=== PATIENT | male | born 1990 | race Caucasian/White ===

== ENCOUNTER 2017-03-04 03:00 | Emergency (ER) | payer MEDICAID, OTHER ==
[~2017-03-04] VITALS: Ht 180.3 cm; Wt 73.0 kg
[~2017-03-04 03:00] MED LIST: DICY10CA60 PO; IBUP-1542 PO; ONDA4TAB35 PO; OSLT75C PO
[2017-03-04 03:14] VITALS: Ht 180.3 cm; Wt 73.0 kg
[2017-03-04] MEDS ORDERED: SOD CHLORIDE 0.9% 1,000 ML IV STA (03:18)
[2017-03-04] MEDS ORDERED: morphine 2 MG INJ IV STA (03:18)
[2017-03-04] MEDS ORDERED: ONDANSETRON 4 MG INJ IV STA (03:18)
--- NOTE | 2017-03-04 04:00 | RADRPT ---
PROCEDURE: CT ABDOMEN/PELVIS WITHOUT CONTRAST CLINICAL INDICATION: 26-year-old male with abdominal pain. TECHNIQUE: The study was performed utilizing a GE Cube[employer].fmpeed VCT 64-slice CT scanner. Direct axia l sections were obtained through the abdomen and pelvis without the use of intravenous contrast mate rial. Sagittal and coronal reformations were obtained. One or more of the following dose reduction t echniques were utilized: automated exposure control, adjustment of the mA and/or kV according to pat ient's size or use of iterative reconstruction technique. The images were reviewed on a PACS workst at[employer]et. CTD/vol = 8.1 mGy; Total Exam DLP = 455.5 mGy-cm. COMPARISON: CT abdomen/pelvis December 17, 2014. FINDINGS: The lung bases are unremarkable. There is no evidence for significant pleural effusion. The liver has a normal size and contour without focal areas of abnormal density. No intrahepatic nor extrahepa tic biliary ductal dilatation is seen. The gallbladder demonstrates no wall thickening nor perichole cystic fluid. No biliary stones are evident. The pancreas is without areas of abnormal attenuation. The spleen is identified and has a normal size without abnormal density. The adrenal glands are unr emarkable. The kidneys are without abnormal density. There is mild prominence of the right renal col lecting system without heidy obstructive uropathy. There is no evidence for nephroureterolithiasis. The urinary bladder contains urine. There is mild retained stool within the colon without obstructi on. Surgical clips are seen within the right lower quadrant from prior appendectomy. There is no s ignificant free fluid. The aortoiliac vessels are without aneurysmal dilatation. The osseous structures are intact. IMPRESSION: 1. Mild prominence of the right renal collecting system without evidence for obstructive uropathy. 2. Retained stool without evidence for bowel obstruction. 3. Prior appendectomy. .Lino Whiting MD, Date Time Electronically viewed and signed by .Lino Whiting MD, MD on 03/04/2017 03:59 .Juanis
[2017-03-04 04:28] LABS: ADD SCAN DIFF NO
[2017-03-04 04:51] LABS: BASOPHIL # 0.1 10^3/ul (0.0-0.1); EOSINOPHILS # 0.3 10^3/ul (0.0-0.5); HEMATOCRIT 48.3 % (42.0-52.0); LYMPHOCYTES # 1.5 10^3/ul (0.8-2.9); LYMPHOCYTES % 24.3 % (15.0-51.0); MEAN CORPUSCULAR HEMOGLOBIN 33.6 pg (29.0-33.0); MEAN CORPUSCULAR HGB CONC 35.2 g/dl (32.0-37.0); MEAN CORPUSCULAR VOLUME 95.5 fl (82.0-101.0); MEAN PLATELET VOLUME 10.1 fl (7.4-10.4); MONOCYTE # 0.4 10^3/ul (0.3-0.9); MONOCYTES % 7.1 % (0.0-11.0); NEUTROPHIL # 3.8 10^3/ul (1.6-7.5); NEUTROPHILS % 62.1 % (39.0-77.0); PLATELET COUNT 279 10^3/UL (140-415); RED BLOOD COUNT 5.06 10^6/ul (4.70-6.10); RED CELL DISTRIBUTION WIDTH 11.9 % (11.5-14.5); WHITE BLOOD COUNT 6.1 10^3/ul (4.8-10.8)
[2017-03-04 04:51] LABS: ADD UMIC NO; URINE BILIRUBIN (Dip) NEGATIVE (NEGATIVE); URINE BLOOD (Dip) NEGATIVE (NEGATIVE); URINE COLOR LT. YELLOW (YELLOW); URINE GLUCOSE (Dip) NEGATIVE (NEGATIVE); URINE KETONES (Dip) NEGATIVE (NEGATIVE); URINE LEUKOCYTE ESTERASE (Dip) NEGATIVE (NEGATIVE); URINE NITRITE (Dip) NEGATIVE (NEGATIVE); URINE TOTAL PROTEIN (Dip) NEGATIVE (NEGATIVE); URINE UROBILINOGEN (Dip) 0.2 E.U./dL (0.1-1.0)
[2017-03-04 04:58] LABS: ALBUMIN 4.8 g/dl (3.3-4.9); ALBUMIN/GLOBULIN RATIO 1.26; BILIRUBIN,INDIRECT 0.4 mg/dl (0-1.1); BILIRUBIN,TOTAL 0.4 mg/dl (0.2-1.3); CREATININE 0.75 mg/dl (0.61-1.24); POTASSIUM 4.1 mmol/L (3.5-5.1); TOTAL PROTEIN 8.6 g/dl (6.1-8.1)
--- NOTE | 2017-03-04 05:40 | ERD ---
ER Documentation Chief Complaint Date/Time DATE: 03/04/17 TIME: 05:39 Chief Complaint black stools since yesterday HPI This is a 26-year-old male was evidence of black tarry stools since yesterday. Patient admits to 6-12 beers per day. Denies any fevers or chills. Denies any vomiting. Has mild nausea. No other current complaints. 2-3 episodes of black tarry stools per day. ROS All systems reviewed and are negative except as per history of present illness. Medications Home Meds Active Scripts Ibuprofen* (Motrin*) 600 Mg Tab, 600 MG PO Q6, #30 TAB Prov:SAMMY IBANEZ PA-C 10/14/16 Ondansetron Hcl* (Zofran* ODT) 4 mg -ODT Tab.disper, 4 MG PO Q6 Y for NAUSEA AND /OR VOMITING, #10 TAB Prov:JOSE MARTIN [place] 03/06/16 Dicyclomine Hcl* (Bentyl*) 10 Mg Capsule, 10 MG PO QID for 5 Days, CAP Prov:JOSE MARTIN [place] 03/06/16 Oseltamivir Phosphate* (Tamiflu*) 75 Mg Cap, 75 MG PO BID for 5 Days Prov:YAIR BARTLETT 12/18/14 Allergies Allergies: Coded Allergies: No Known Allergies (Verified Allergy, Unknown, 03/04/17) PMhx/Soc History of Surgery: Yes (appendectomy on 2013) Anesthesia Reaction: No Hx Neurological Disorder: No Hx Respiratory Disorders: No Hx Cardiac Disorders: No Hx Psychiatric Problems: Yes (depression, anxiety) Hx Alcohol Use: Yes (6-12 beers/day) Hx Substance Use: No Hx Tobacco Use: Yes (4 cigarettes per day per pt verbatim) Smoking Status: Current every day smoker Physical Exam Vitals Vital Signs Date Time Temp Pulse Resp B/P Pulse Ox O2 Delivery O2 Flow Rate FiO2 03/04/17 03:14 97.2 92 20 142/96 98 Physical Exam Const: [] Head: Atraumatic Eyes: Normal Conjunctiva ENT: Normal External Ears, Nose and Mouth. Neck: Full range of motion..~ No meningismus. Resp: Clear to auscultation bilaterally Cardio: Regular rate and rhythm, no murmurs Abd: Soft, non tender, non distended. Normal bowel sounds Skin: No petechiae or rashes Back: No midline or flank tenderness Ext: No cyanosis, or edema Neur: Awake and alert Psych: Normal Mood and Affect Result Diagram: 03/04/171 03/04/17410 Results 24 hrs Laboratory Tests Test 03/04/17 04:11 03/04/17 04:15 White Blood Count 6.110^3/ul Red Blood Count 5.0610^6/ul Hemoglobin 17.0g/dl Hematocrit 48.3% Mean Corpuscular Volume 95.5fl Mean Corpuscular Hemoglobin 33.6pg Mean Corpuscular Hemoglobin Concent 35.2g/dl Red Cell Distribution Width 11.9% Platelet Count 91608^3/UL Mean Platelet Volume 10.1fl Neutrophils % 62.1% Lymphocytes % 24.3% Monocytes % 7.1% Eosinophils % 5.0% Basophils % 1.0% Nucleated Red Blood Cells % 0.0/100WBC Neutrophils # 3.810^3/ul Lymphocytes # 1.510^3/ul Monocytes # 0.410^3/ul Eosinophils # 0.310^3/ul Basophils # 0.110^3/ul Nucleated Red Blood Cells # 0.010^3/ul Sodium Level 138mmol/L Potassium Level 4.1mmol/L Chloride Level 102mmol/L Carbon Dioxide Level 26mmol/L Anion Gap 14 Blood Urea Nitrogen 13mg/dl Creatinine 0.75mg/dl Glucose Level 95mg/dl Calcium Level 9.0mg/dl Total Bilirubin 0.4mg/dl Direct Bilirubin 0.00mg/dl Indirect Bilirubin 0.4mg/dl Aspartate Amino Transf (AST/SGOT) 63IU/L Alanine Aminotransferase (ALT/SGPT) 70IU/L Alkaline Phosphatase 101IU/L Total Protein 8.6g/dl Albumin 4.8g/dl Globulin 3.80g/dl Albumin/Globulin Ratio 1.26 Lipase 313U/L Urine Color LT. YELLOW Urine Clarity CLEAR Urine pH 6.5 Urine Specific [place] <=1.005 Urine Ketones NEGATIVE Urine Nitrite NEGATIVE Urine Bilirubin NEGATIVE Urine Urobilinogen 0.2 E.U./dL Urine Leukocyte Esterase NEGATIVE Urine Hemoglobin NEGATIVE Urine Glucose NEGATIVE% Urine Total Protein NEGATIVE Current Medications Medications (Trade) Dose Ordered Sig/Angel Route PRN Reason Start Time Stop Time Status Last Admin Dose Admin Sodium Chloride (NS) 1,000 ml @ 1,000 mls/hr Q1H STAT IV 03/04/17 03:18 03/04/17 04:17 DC 03/04/17 04:17 Morphine Sulfate (morphine) 2 mg ONCE STAT IV 03/04/17 03:18 03/04/17 03:19 DC 03/04/17 04:17 Ondansetron HCl (Zofran Inj) 4 mg ONCE STAT IV 03/04/17 03:18 03/04/17 03:19 DC 03/04/17 04:17 Procedures/MDM Medical decision: 26 mL vancomycin is likely secondary to alcohol consumption. Advised to stop drinking alcohol. Patient placed on Zantac and Zofran. Follow- up with PCP. Return in 8 hours for serial abdominal exams. Departure Diagnosis: Primary Impression: Alcoholic gastritis with bleeding Chronicity: acute Qualified Code: K29.21 - Acute alcoholic gastritis with hemorrhage Condition: Stable AZALIA HAYWARD March 04, 2017 05:40
[2017-03-04] MEDS ORDERED: RANI150T9 PO (05:43)
[2017-03-04] MEDS ORDERED: SUCR1TAB56 PO (05:43)
[2017-03-04 06:15] VITALS: BP 137/89; PULSE 82; RESP 20; TEMP 98.2
== END 2017-03-04 06:16 | disposition home or self-care (01) ==
LOC: E/R 03:00
DX: K29.21 Alcoholic gastritis with bleeding (principal); R40.2252 Coma scale, best verbal response, oriented, at arrival to emergency department; F17.210 Nicotine dependence, cigarettes, uncomplicated; R40.2142 Coma scale, eyes open, spontaneous, at arrival to emergency department; R40.2362 Coma scale, best motor response, obeys commands, at arrival to emergency department
CPT/HCPCS: 36415; 74176; 80053; 81003; 83690; 85025; 96374; 96375; J2270; J2405; J7030; Z7502

== ENCOUNTER 2017-07-04 06:53 | Emergency (ER) | payer SELFPAY ==
[~2017-07-04] VITALS: Ht 177.8 cm; Wt 84.0 kg
[~2017-07-04 06:53] MED LIST changes: +RANI150T9 PO; +SUCR1TAB56 PO
[2017-07-04 08:00] VITALS: Ht 177.8 cm; Wt 84.0 kg
[2017-07-04] MEDS ORDERED: SOD CHLORIDE 0.9% 1,000 ML IV STA (08:00)
[2017-07-04] MEDS ORDERED: LORAZEPAM 2 MG INJ IV ONE (08:00)
[2017-07-04 08:23] LABS: BASOPHIL # 0.1 10^3/ul (0.0-0.1); BASOPHILS % 1.1 % (0.0-2.0); EOSINOPHILS # 0.1 10^3/ul (0.0-0.5); EOSINOPHILS % 1.9 % (0.0-7.0); HEMATOCRIT 46.3 % (42.0-52.0); HEMOGLOBIN 16.6 g/dl (14.0-18.0); LYMPHOCYTES % 15.3 % (15.0-51.0); MEAN CORPUSCULAR HEMOGLOBIN 33.3 pg (29.0-33.0); MEAN CORPUSCULAR HGB CONC 35.9 g/dl (32.0-37.0); MEAN PLATELET VOLUME 10.2 fl (7.4-10.4); MONOCYTE # 0.4 10^3/ul (0.3-0.9); MONOCYTES % 6.3 % (0.0-11.0); NEUTROPHILS % 74.9 % (39.0-77.0); PLATELET COUNT 261 10^3/UL (140-415); RED BLOOD COUNT 4.98 10^6/ul (4.70-6.10); RED CELL DISTRIBUTION WIDTH 11.6 % (11.5-14.5); WHITE BLOOD COUNT 6.4 10^3/ul (4.8-10.8)
[2017-07-04 08:42] LABS: ALANINE AMINOTRANSFERASE 38 IU/L (13-69); ALBUMIN 5.1 g/dl (3.3-4.9); ALBUMIN/GLOBULIN RATIO 1.27; ALKALINE PHOSPHATASE 105 IU/L (42-121); ANION GAP 17 (8-16); ASPARTATE AMINO TRANSFERASE 40 IU/L (15-46); BILIRUBIN,INDIRECT 0.4 mg/dl (0-1.1); BILIRUBIN,TOTAL 0.4 mg/dl (0.2-1.3); BLOOD UREA NITROGEN 8 mg/dl (7-20); CALCIUM 9.8 mg/dl (8.4-10.2); CARBON DIOXIDE 25 mmol/L (21-31); CHLORIDE 103 mmol/L (97-110); CREATININE 0.83 mg/dl (0.61-1.24); GLUCOSE 110 mg/dl (70-220); POTASSIUM 3.9 mmol/L (3.5-5.1); SODIUM 141 mmol/L (135-144); TOTAL PROTEIN 9.1 g/dl (6.1-8.1)
[2017-07-04 08:46] LABS: ACETAMINOPHEN < 10.0 ug/ml (10.0-30.0); ETHANOL < 10.0 mg/dl; SALICYLATE < 1.0 mg/dl (5.0-30.0)
[2017-07-04 08:55] LABS: TROPONIN-I < 0.012 ng/ml (0.00-0.12)
[2017-07-04 09:53] LABS: BARBITURATES Negative (NEGATIVE); BENZODIAZEPINES Negative (NEGATIVE); CANNABINOIDS Negative (NEGATIVE); COCAINE Negative (NEGATIVE); OPIATES Negative (NEGATIVE)
[2017-07-04] MEDS ORDERED: LORA-441 PO (09:59)
[2017-07-04 10:30] VITALS: BP 130/98; PULSE 68; RESP 16; TEMP 98.1
--- NOTE | 2017-07-05 17:52 | ERD ---
ER Documentation Chief Complaint Date/Time DATE: 07/05/17 TIME: 17:46 Chief Complaint vomiting,dizziness,abdominal pain,feeling bloated started last night HPI 27-year-old man here complaining of depression and having thoughts of suicide although denies specific plan. He does have a history of psychiatric illness and alcohol abuse. He states he has been drinking all day yesterday denies homicidal thoughts, he has had no fevers or chills, no seizure activity, no diarrhea, no blood per rectum. Patient states she has been nauseous and has had a few episodes of clear nonbloody nonbilious emesis yesterday. Patient's main concern was alcohol detoxification management. ROS All systems reviewed and are negative except as per history of present illness. Medications Home Meds Active Scripts Lorazepam* (Ativan*) 0.5 Mg Tablet, 0.5 MG PO BID for ANXIETY, #10 TAB Prov:JOVAN EDEN MD 07/04/17 Discontinued Scripts Ranitidine Hcl* (Zantac*) 150 Mg Tablet, 150 MG PO BID Y for EPIGASTRIC PAIN, # 30 TAB Prov:AZALIA HAYWARD 03/04/17 Sucralfate* (Carafate*) 1 Gm Tab, 1 GM PO QID, #60 TAB Prov:AZALIA HAYWARD 03/04/17 Ibuprofen* (Motrin*) 600 Mg Tab, 600 MG PO Q6, #30 TAB Prov:SAMMY IBANEZ PA-C 10/14/16 Ondansetron Hcl* (Zofran* ODT) 4 mg -ODT Tab.disper, 4 MG PO Q6 Y for NAUSEA AND /OR VOMITING, #10 TAB Prov:JOSE MARTIN MONTA[place] 03/06/16 Dicyclomine Hcl* (Bentyl*) 10 Mg Capsule, 10 MG PO QID for 5 Days, CAP Prov:JOSE MARTIN [place] 03/06/16 Oseltamivir Phosphate* (Tamiflu*) 75 Mg Cap, 75 MG PO BID for 5 Days Prov:YAIR BARTLETT 12/18/14 Allergies Allergies: Coded Allergies: No Known Allergies (Verified Allergy, Unknown, 07/04/17) PMhx/Soc Psychiatric illness, alcohol abuse Medical and Surgical Hx: pt denies Medical Hx History of Surgery: Yes (Appy ) Anesthesia Reaction: No Hx Neurological Disorder: No Hx Respiratory Disorders: No Hx Cardiac Disorders: No Hx Psychiatric Problems: No (Pt reports feelings like "ending it all" when he experiences etoh wdwl.) Hx Miscellaneous Medical Probl: No Hx Alcohol Use: Yes (Reports daily drinking in excess of at least 12-pack daily ) Hx Substance Use: Yes (Denies recent use, however, reports heavy past use) Hx Tobacco Use: Yes (Smokes cigarettes daily) Smoking Status: Current every day smoker FmHx Family History: No diabetes Physical Exam Vitals Vital Signs Date Time Temp Pulse Resp B/P Pulse Ox O2 Delivery O2 Flow Rate FiO2 07/04/17 10:30 98.1 68 16 130/98 98 Room Air 07/04/17 08:30 68 18 127/92 100 Room Air 07/04/17 08:00 98.4 93 24 135/106 100 07/04/17 06:54 97.6 101 18 144/93 98 Physical Exam GENERAL: Well-developed, well-nourished, well-hydrated, agitated, afebrile HEENT: Moist mucous membranes, pink conjunctiva, no cervical spine tenderness or step-off deformities, no goiter, no jaundice or icterus, extraocular movements intact without pain. No submandibular induration, and no pharyngeal erythema NEURO: Alert and oriented 3, cranial nerves II through XII intact bilaterally, pupils equal round reactive to light, no focal deficits or facial asymmetry, sensation intact distally Strength 5/5 in upper and lower extremities bilaterally CARDIAC: Tachycardic and regular, no murmurs rubs or gallops LUNGS: Clear bilaterally no wheezing crackles or stridor ABDOMEN: Soft nontender, no guarding, no rigidity, no rebound, no psoas sign no obturator sign. Normoactive bowel sounds SKIN: Warm and dry to touch, no abrasions, contusions, or hematomas, no lacerations, no ecchymosis, no target lesions, and without ulcers EXTREMITIES: No clubbing cyanosis or edema, calves are bilaterally symmetrical, no Homans sign, no popliteal cord sign. Distal pulses equal and bilateral PSYCH: Agitated Result Diagram: 07/04/17 0750 07/04/17 0750 Results 24 hrs Laboratory Tests Test 07/04/17 07:50 07/04/17 08:43 White Blood Count 6.410^3/ul Red Blood Count 4.9810^6/ul Hemoglobin 16.6g/dl Hematocrit 46.3% Mean Corpuscular Volume 93.0fl Mean Corpuscular Hemoglobin 33.3pg Mean Corpuscular Hemoglobin Concent 35.9g/dl Red Cell Distribution Width 11.6% Platelet Count 85805^3/UL Mean Platelet Volume 10.2fl Neutrophils % 74.9% Lymphocytes % 15.3% Monocytes % 6.3% Eosinophils % 1.9% Basophils % 1.1% Nucleated Red Blood Cells % 0.0/100WBC Neutrophils # (Manual) 4.810^3/ul Lymphocytes # 1.010^3/ul Monocytes # 0.410^3/ul Eosinophils # 0.110^3/ul Basophils # 0.110^3/ul Nucleated Red Blood Cells # 0.010^3/ul Sodium Level 141mmol/L Potassium Level 3.9mmol/L Chloride Level 103mmol/L Carbon Dioxide Level 25mmol/L Anion Gap 17 Blood Urea Nitrogen 8mg/dl Creatinine 0.83mg/dl Glucose Level 110mg/dl Calcium Level 9.8mg/dl Total Bilirubin 0.4mg/dl Direct Bilirubin 0.00mg/dl Indirect Bilirubin 0.4mg/dl Aspartate Amino Transf (AST/SGOT) 40IU/L Alanine Aminotransferase (ALT/SGPT) 38IU/L Alkaline Phosphatase 105IU/L Troponin I < 0.012ng/ml Total Protein 9.1g/dl Albumin 5.1g/dl Globulin 4.00g/dl Albumin/Globulin Ratio 1.27 Lipase 414U/L Salicylates Level < 1.0mg/dl Acetaminophen Level < 10.0ug/ml Ethyl Alcohol Level < 10.0mg/dl Urine Opiates Screen Negative Urine Barbiturates Negative Urine Amphetamines Screen Negative Urine Benzodiazepines Screen Negative Urine Cocaine Screen Negative Urine Cannabinoids Negative Current Medications Medications (Trade) Dose Ordered Sig/Angel Route PRN Reason Start Time Stop Time Status Last Admin Dose Admin Sodium Chloride (NS) 1,000 ml @ 1,000 mls/hr Q1H STAT IV 07/04/17 08:00 07/04/17 08:59 DC 07/04/17 08:29 Lorazepam (Ativan) 1 mg ONCE ONCE IV 07/04/17 08:00 07/04/17 08:03 DC 07/04/17 08:29 Procedures/MDM IV line was established 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 She was afebrile. I administered 1 L normal saline intravenously and lorazepam 1 mg IV 1. CBC and electrolytes are normal, liver function tests normal, troponin negative. Urine drug screen negative for drugs of abuse, alcohol aspirin Tylenol levels negative.After lorazepam took effect and he was hydrated his vital signs improved, patient felt much better. I question him again at length at the bedside and he denied having a plan to kill himself or hurt others, he stated he has had intermittent suicidal thoughts for many years but did not want to kill himself at this time. His main concern was alcohol detoxification , but I informed him we do not have inpatient alcohol detox facilities that I would provide him with the address and phone number to multiple nearby alcohol detox facilities. Patient thanked me and agreed to outpatient management. Differential diagnoses considered, included but not limited to acute coronary syndrome, pulmonary embolism, aortic dissection, abdominal aortic aneurysm, sepsis, stroke, meningitis, encephalitis, pneumonia, appendicitis, cholecystitis , bowel obstruction, pyelonephritis, nephrolithiasis, cystitis, as well as metabolic, hematologic, and electrolyte abnormalities. As well as abscess, cellulitis, fractures, and dislocations. Patient feels much better at this time, and vital signs are normal, symptoms have improved. I did give strict instructions to return to the ED if symptoms continue or worsen, patient will otherwise follow-up with primary care physician. Patient understood instructions and agreed to plan. Disclaimer: Inadvertent spelling and grammatical errors are likely due to EHR/ dictation software use and do not reflect on the overall quality of patient care. Also, please note that the electronic time recorded on this note does not necessarily reflect the actual time of the patient encounter. Departure Diagnosis: Primary Impression: Alcohol abuse Additional Impressions: Dehydration Anxiety Condition: Good Patient Instructions: Alcohol Abuse Referrals: COMMUNITY CLINICS YOU HAVE RECEIVED A MEDICAL SCREENING EXAM AND THE RESULTS INDICATE THAT YOU DO NOT HAVE A CONDITION THAT REQUIRES URGENT TREATMENT IN THE EMERGENCY DEPARTMENT. FURTHER EVALUATION AND TREATMENT OF YOUR CONDITION CAN WAIT UNTIL YOU ARE SEEN IN YOUR DOCTORS OFFICE WITHIN THE NEXT 1-2 DAYS. IT IS YOUR RESPONSIBILITY TO MAKE AN APPOINTMENT FOR FOLOW-UP CARE. IF YOU HAVE A PRIMARY DOCTOR --you should call your primary doctor and schedule an appointment IF YOU DO NOT HAVE A PRIMARY DOCTOR YOU CAN CALL OUR PHYSICIAN REFERRAL HOTLINE AT IF YOU CAN NOT AFFORD TO SEE A PHYSICIAN YOU CAN CHOSE FROM THE FOLLOWING [facility] CLINICS [facility] [address] [place] [facility] [address] [facility] [address] [facility] [address] [facility] [address] [facility]. [facility] [address]. [facility] YOU HAVE RECEIVED A MEDICAL SCREENING EXAM AND THE RESULTS INDICATE THAT YOU DO NOT HAVE A CONDITION THAT REQUIRES URGENT TREATMENT IN THE EMERGENCY DEPARTMENT. FURTHER EVALUATION AND TREATMENT OF YOUR CONDITION CAN WAIT UNTIL YOU ARE SEEN IN YOUR DOCTORS OFFICE WITHIN THE NEXT 1-2 DAYS. IT IS YOUR RESPONSIBILITY TO MAKE AN APPOINTMENT FOR FOLOW-UP CARE. IF YOU HAVE A PRIMARY DOCTOR --you should call your primary doctor and schedule and appointment IF YOU DO NOT HAVE A PRIMARY DOCTOR YOU CAN CALL OUR PHYSICIAN REFERRAL HOTLINE AT . IF YOU CAN NOT AFFORD TO SEE A PHYSICIAN YOU CAN CHOSE FROM THE FOLLOWING OUR [facility] INSTITUTIONS: [facility] [address] [place] [address] [facility] [address] [place] [address] [facility] [address] [place] [address] [facility] JOVAN EDEN MD Jul 05, 2017 17:52
== END 2017-07-04 10:30 | disposition home or self-care (01) ==
LOC: FTE 06:53 → E/R 10:30
DX: F10.10 Alcohol abuse, uncomplicated (principal); E86.0 Dehydration; F41.9 Anxiety disorder, unspecified; F17.210 Nicotine dependence, cigarettes, uncomplicated; R40.2142 Coma scale, eyes open, spontaneous, at arrival to emergency department; R40.2252 Coma scale, best verbal response, oriented, at arrival to emergency department; R40.2362 Coma scale, best motor response, obeys commands, at arrival to emergency department
CPT/HCPCS: 36415; 80053; 80306; 80307; 83690; 84484; 85025; 96361; 96374; 99284; J2060; J7030

== ENCOUNTER 2017-07-14 08:05 | Inpatient (IN) | payer MEDICAID ==
[~2017-07-14] VITALS: Ht 175.3 cm; Wt 68.5 kg
[~2017-07-14 08:05] MED LIST changes: -DICY10CA60 PO; -IBUP-1542 PO; +LORA-441 PO; -ONDA4TAB35 PO; -OSLT75C PO; -RANI150T9 PO; -SUCR1TAB56 PO
[2017-07-14] MEDS ORDERED: SOD CHLORIDE 0.9% 1,000 ML IV STA (08:27)
[2017-07-14] MEDS ORDERED: FOLIC ACID 1 MG, THIAMINE 100 MG, MULTIVITAMINS 10 ML, MAGNESIUM SULFATE 2 GM in SOD CH... IV STA (08:27)
[2017-07-14] MEDS ORDERED: LORAZEPAM 2 MG INJ IV STA (08:27)
[2017-07-14 09:04] LABS: BASOPHIL # 0.1 10^3/ul (0.0-0.1); BASOPHILS % 1.4 % (0.0-2.0); EOSINOPHILS # 0.1 10^3/ul (0.0-0.5); EOSINOPHILS % 1.8 % (0.0-7.0); HEMATOCRIT 46.9 % (42.0-52.0); HEMOGLOBIN 16.4 g/dl (14.0-18.0); LYMPHOCYTES # 1.3 10^3/ul (0.8-2.9); MEAN CORPUSCULAR HEMOGLOBIN 32.3 pg (29.0-33.0); MEAN CORPUSCULAR VOLUME 92.3 fl (82.0-101.0); MEAN PLATELET VOLUME 10.2 fl (7.4-10.4); MONOCYTE # 0.3 10^3/ul (0.3-0.9); MONOCYTES % 4.8 % (0.0-11.0); NEUTROPHIL # 4.8 10^3/ul (1.6-7.5); NEUTROPHILS % 72.7 % (39.0-77.0); PLATELET COUNT 278 10^3/UL (140-415); RED BLOOD COUNT 5.08 10^6/ul (4.70-6.10); RED CELL DISTRIBUTION WIDTH 11.7 % (11.5-14.5); WHITE BLOOD COUNT 6.6 10^3/ul (4.8-10.8)
[2017-07-14 09:29] LABS: ALANINE AMINOTRANSFERASE 41 IU/L (13-69); ALBUMIN 4.8 g/dl (3.3-4.9); ALBUMIN/GLOBULIN RATIO 1.33; ALKALINE PHOSPHATASE 112 IU/L (42-121); ANION GAP 17 (8-16); ASPARTATE AMINO TRANSFERASE 45 IU/L (15-46); BILIRUBIN,INDIRECT 0.3 mg/dl (0-1.1); BILIRUBIN,TOTAL 0.3 mg/dl (0.2-1.3); BLOOD UREA NITROGEN 7 mg/dl (7-20); CALCIUM 9.9 mg/dl (8.4-10.2); CARBON DIOXIDE 24 mmol/L (21-31); CHLORIDE 102 mmol/L (97-110); CREATININE 0.79 mg/dl (0.61-1.24); GLUCOSE 97 mg/dl (70-220); POTASSIUM 4.1 mmol/L (3.5-5.1); SODIUM 139 mmol/L (135-144); TOTAL PROTEIN 8.4 g/dl (6.1-8.1)
[2017-07-14 09:56] LABS: ETHANOL < 10.0 mg/dl
--- NOTE | 2017-07-14 10:09 | ERA ---
ER Documentation Chief Complaint Date/Time DATE: 07/14/17 TIME: 10:05 Chief Complaint dizziness, jessica and nausea since last night HPI 27 -year-old male history of alcohol abuse. He states that he drinks at least 10-15 beers per day. His last drink was around noon. The patient states that since then he has been having persistent nonbloody nonbilious emesis and now dry heaving. He states that he feels ill. He states that he is having occasional visual hallucinations but cannot describe what he is seeing. He denies any suicidal homicidal thoughts. He states that he may have fallen and hit his head but he is unsure. He does not know why he feels this poorly. ROS All systems reviewed and are negative except as per history of present illness. Medications Home Meds Discontinued Scripts Lorazepam* (Ativan*) 0.5 Mg Tablet, 0.5 MG PO BID for ANXIETY, #10 TAB Prov:JOVAN EDEN MD 07/04/17 Allergies Allergies: Coded Allergies: No Known Allergies (Verified Allergy, Unknown, 07/14/17) PMhx/Soc History of Surgery: Yes (Appy ) Anesthesia Reaction: No Hx Neurological Disorder: No Hx Respiratory Disorders: No Hx Cardiac Disorders: No Hx Psychiatric Problems: No (Pt reports feelings like "ending it all" when he experiences etoh wdwl.) Hx Miscellaneous Medical Probl: No Hx Alcohol Use: Yes (Reports daily drinking in excess of at least 12-pack daily ) Hx Substance Use: Yes (Denies recent use, however, reports heavy past use) Hx Tobacco Use: Yes (Smokes cigarettes daily) Smoking Status: Current every day smoker FmHx Family History: No diabetes Physical Exam Vitals Vital Signs Date Time Temp Pulse Resp B/P Pulse Ox O2 Delivery O2 Flow Rate FiO2 07/14/17 11:23 89 20 109/66 98 Room Air 07/14/17 08:06 97.6 89 20 157/87 99 Physical Exam General extremely jittery, agitated, seems to be responding to internal stimuli Head: Normocephalic, atraumatic Eyes: Pupils equally reactive, EOM intact ENT: Dry mucous membranes Neck: Supple, no lymphadenopathy Respiratory: Lungs clear bilaterally, no distress Cardiovascular: Tachycardia, no murmurs, rubs, or gallops Abdominal: Soft, non-tender, non-distended, no peritoneal signs : Deferred MSK: No edema, no unilateral swelling, 5/5 strength Neurologic: Alert and oriented, moving all extremities, normal speech, no focal weakness, no cerebellar signs, shaking tremor Skin: No rash Psych: Agitated, hallucinations Result Diagram: 07/14/17 0845 07/14/17 0845 Results 24 hrs Laboratory Tests Test 07/14/17 08:45 White Blood Count 6.610^3/ul Red Blood Count 5.0810^6/ul Hemoglobin 16.4g/dl Hematocrit 46.9% Mean Corpuscular Volume 92.3fl Mean Corpuscular Hemoglobin 32.3pg Mean Corpuscular Hemoglobin Concent 35.0g/dl Red Cell Distribution Width 11.7% Platelet Count 12903^3/UL Mean Platelet Volume 10.2fl Neutrophils % 72.7% Lymphocytes % 19.0% Monocytes % 4.8% Eosinophils % 1.8% Basophils % 1.4% Nucleated Red Blood Cells % 0.0/100WBC Neutrophils # 4.810^3/ul Lymphocytes # 1.310^3/ul Monocytes # 0.310^3/ul Eosinophils # 0.110^3/ul Basophils # 0.110^3/ul Nucleated Red Blood Cells # 0.010^3/ul Sodium Level 139mmol/L Potassium Level 4.1mmol/L Chloride Level 102mmol/L Carbon Dioxide Level 24mmol/L Anion Gap 17 Blood Urea Nitrogen 7mg/dl Creatinine 0.79mg/dl Glucose Level 97mg/dl Calcium Level 9.9mg/dl Total Bilirubin 0.3mg/dl Direct Bilirubin 0.00mg/dl Indirect Bilirubin 0.3mg/dl Aspartate Amino Transf (AST/SGOT) 45IU/L Alanine Aminotransferase (ALT/SGPT) 41IU/L Alkaline Phosphatase 112IU/L Total Protein 8.4g/dl Albumin 4.8g/dl Globulin 3.60g/dl Albumin/Globulin Ratio 1.33 Ethyl Alcohol Level < 10.0mg/dl Current Medications Medications (Trade) Dose Ordered Sig/Angel Route PRN Reason Start Time Stop Time Status Last Admin Dose Admin Lorazepam 2 mg 2 mg ONCE STAT IV 07/14/17 08:27 07/14/17 08:31 DC 07/14/17 08:50 Folic Acid 1 mg/ Thiamine HCl 100 mg/Multivitamins 10 ml/Magnesium Sulfate 2 gm/ Sodium Chloride 1,015.2 ml @ 500 mls/ hr Q2H2M STAT IV 07/14/17 08:27 07/14/17 10:28 DC 07/14/17 08:49 Sodium Chloride (NS) 1,000 ml @ 1,000 mls/hr Q1H STAT IV 07/14/17 08:27 07/14/17 09:26 DC 07/14/17 08:51 Lorazepam (Ativan) 1 mg ONCE ONCE IV 07/14/17 11:00 07/14/17 11:01 DC 07/14/17 10:40 Ondansetron HCl (Zofran Inj) 4 mg ER BRIDGE PRN IV NAUSEA AND/OR VOMITING 07/14/17 12:00 07/15/17 11:59 07/14/17 13:12 Acetaminophen 650 mg 650 mg ER BRIDGE PRN PO MILD PAIN/FEVER 07/14/17 12:00 07/15/17 11:59 07/14/17 13:12 Multivitamins/ Thiamine HCl/ Folic Acid/Sodium Chloride (Mvi Adult/ Vitamin B1/Folic Acid/NS) 1,011.2 ml @ 125 mls/ hr DAILY@09 IVPB 07/15/17 09:00 Chlordiazepoxide (Librium) 75 mg TID PO 07/14/17 21:00 Lorazepam (Ativan) 1 mg Q1H PRN IV etoh withdrawal 07/14/17 13:30 IV Flush (NS 3 ml) 3 ml PER PROTOCOL IV 07/14/17 13:30 Ondansetron HCl (Zofran Inj) 4 mg Q6H PRN IV NAUSEA AND/OR VOMITING 07/14/17 13:30 Acetaminophen (Tylenol Tab) 650 mg Q6H PRN PO PAIN LEVEL 1-3 OR FEVER 07/14/17 13:30 Acetaminophen (Tylenol Supp) 650 mg Q6H PRN [place] PAIN LEVEL 1-3 OR FEVER 07/14/17 13:30 Acetaminophen/ Hydrocodone Bitart ([place] (5/325)) 1 tab Q6H PRN PO MODERATE PAIN LEVEL 4-6 07/14/17 13:30 Acetaminophen/ Hydrocodone Bitart ([place] (5/325)) 2 tab Q6H PRN PO SEVERE PAIN LEVEL 7-10 07/14/17 13:30 Morphine Sulfate (morphine) 2 mg Q4H PRN IV SEVERE PAIN LEVEL 7-10 07/14/17 13:30 Docusate Sodium (Colace) 100 mg Q12H PRN PO CONSTIPATION 07/14/17 13:30 Magnesium Hydroxide (Milk Of Mag) 30 ml DAILY PRN PO CONSTIPATION 07/14/17 13:30 Bisacodyl (Dulcolax Supp) 10 mg DAILY PRN [place] CONSTIPATION 07/14/17 13:30 Pantoprazole (Protonix Tab) 40 mg DAILY@06 PO 07/15/17 06:00 Procedures/MDM EKG, MONITORS, & DIAGNOSTIC IMAGING: EKG: I reviewed and interpreted a 12-lead EKG. Rhythm: Normal sinus rhythm Ectopy: None Intervals: No abnormalities ST segments: No elevations or depressions T waves: No contiguous inversions MRI brain: Pending LAB INTERPRETATION: no Leukocytosis or hepatobiliary obstruction MEDICAL DECISION MAKING: The patient has clinical signs and symptoms concerning for severe alcohol withdrawal and possible early delirium tremens. The patient appears to be having some hallucinations. He is unsure if he fell or hit his head. He clinically does not have any evidence of trauma but given his alcohol abuse history a CT of the brain is indicated. CT is down at our facility. our normal transfer protocol to [place] is not working. MRI of the brain has been ordered. The patient will require aggressive fluid resuscitation, electrolyte repletion, thiamine, folic acid, Ativan at inpatient hospitalization given strong concern for worsening symptoms. ER COURSE: The patient was given IV fluids, banana bag. He was given 2 mg of Ativan with slightly improved symptomatology. At this point he has not required repeat dosing therefore I do not believe ICU level of care is necessary. The patient will be admitted for further management. The patient was reevaluated and now requires a second dose of Ativan. The patient does not require ICU but telemetry level of care. I kept the patient and/or family informed of laboratory and diagnostic imaging results throughout the emergency room course. DISPOSITION PLAN: Telemetry admission for management of alcohol withdrawal syndrome CONSULTATION: Accepting care team and consultations: I discussed the current laboratory data, diagnostic imaging and emergency care provided. Admitting team: Dr. Land Admitting team indication: Insurance directed Dr. Land to follow on MRI results Departure Diagnosis: Primary Impression: Alcohol abuse Additional Impression: Alcohol withdrawal delirium Condition: ERI Winston MD Jul 14, 2017 10:09
[2017-07-14] MEDS ORDERED: LORAZEPAM 2 MG INJ IV ONE (11:00)
[2017-07-14] MEDS ORDERED: ACETAMINOPHEN 325 MG TAB PO PRN ×2 (12:00→13:30)
[2017-07-14] MEDS: ONDANSETRON 4 MG INJ IV PRN ×2 (13:12→15:55)
[2017-07-14] MEDS ORDERED: NACL 0.9% 3 ML SYG IV SCH (13:30)
[2017-07-14] MEDS ORDERED: ONDANSETRON 4 MG INJ IV PRN (13:30)
[2017-07-14] MEDS ORDERED: ACETAMINOPHEN 650 MG SUPP PR PRN (13:30)
[2017-07-14] MEDS ORDERED: morphine 2 MG INJ IV PRN (13:30)
[2017-07-14] MEDS ORDERED: MAGNESIUM HYDROXIDE 30ML CUP PO PRN (13:30)
[2017-07-14] MEDS ORDERED: BISACODYL 10 MG SUPP PR PRN (13:30)
[2017-07-14] MEDS ORDERED: DOCUSATE SODIUM 100 MG CAP PO PRN (13:30)
[2017-07-14] MEDS ORDERED: HYDROCODONE/APAP (5/325) TAB PO PRN ×2 (13:30)
--- NOTE | 2017-07-14 14:31 | HP ---
Date/Time of Note Date/Time of Note DATE: 07/14/17 TIME: 14:26 Assessment/Plan VTE Prophylaxis VTE Prophylaxis Intervention: ambulation Assessment/Plan Chief Complaint/Hosp Course Assessment and plan 1. Alcohol withdrawal. Continue on banana bag. Will place on Librium as well. Ativan as needed for possible delirium tremens. Will get social media specialist to follow as well. Of note patient did state that he "blacked out". MRI of the brain is pending at this time. Will follow up with result 2. Alcohol abuse. Cessation was advised. press worker helper to follow. 3. Abdominal pain. Follow-up lipase level. At present time CT scan machine is down. Will plan for further abdominal imaging once available and pending clinical course 4. Nausea secondary to #1. Antiemetics as needed. Admission process time >40 Discussed plan of care with Dr. Land Problems: HPI/ROS Hx of Present Illness This is a 27-year-old male with history of appendectomy in the past as well as alcohol abuse who came to [facility] after having abdominal pain with associated nausea. According to patient he had been drinking for 48 hours straight and that typically he drinks 12-18, 25 ounce cans of beer per day. He reported that the night prior to admission he had passed out in the evening time. He states that he woke up sitting down on his porch with a can of beer in his hand. When he went to his house he started to have increased nausea and persistent vomiting nonbilious nonbloody for reportedly 6 hours. He also reported feeling palpitations and anxiety associated with it. He subsequently went to [facility] for further evaluation. His ethanol level was negative on admission. No significant findings seen on CBC or BMP. He remained afebrile with no seen tachycardia. MRI of his brain is pending at this time. We will evaluate him for the aformentiond issues. ROS 12 point review of systems obtained entirely negative except as mentioned in history of present illness PMH/Family/Social Past Medical History Medical/surgical history 1. Appendectomy Family History Significant Family History: no pertinent family hx Social History Alcohol Use: heavy Smoking Status: Current every day smoker (Smokes 2 packs of cigarettes per week ) Drug Use: none Exam/Review of Systems Vital Signs Vitals Vital Signs Date Time Temp Pulse Resp B/P Pulse Ox O2 Delivery O2 Flow Rate FiO2 9/17/17 11:23 89 20 109/66 98 Room Air 07/14/17 08:06 97.6 Exam Constitutional: alert, oriented Psych: anxiety Head: normocephalic Neck: non-tender Respiratory: clear to auscultation Cardiovascular: nl pulses, regular rate and rhythm Gastrointestinal: non-tender, soft Musculoskeletal: nl extremities to inspection Extremities: normal pulses Neurological: DEHORNER II-XII intact, nl mental status, nl speech Skin: nl turgor Labs Result Diagram: 07/14/1745 07/14/1745 Medications Medications Current Medications Multivitamins/ Thiamine HCl/ Folic Acid/Sodium Chloride (Mvi Adult/ Vitamin B1/ Folic Acid/NS) 1,011.2 ml @ 125 mls/ hr DAILY@09 IVPB ; Start 07/15/17 at 09:00 Chlordiazepoxide (Librium) 75 mg TID PO ; Start 07/14/17 at 21:00 Lorazepam (Ativan) 1 mg Q1H PRN IV etoh withdrawal; Start 07/14/17 at 13:30 Ondansetron HCl (Zofran Inj) 4 mg Q6H PRN IV NAUSEA AND/OR VOMITING; Start at 13:30 Acetaminophen (Tylenol Tab) 650 mg Q6H PRN PO PAIN LEVEL 1-3 OR FEVER; Start at 13:30 Acetaminophen (Tylenol Supp) [address] PAIN LEVEL 1-3 OR FEVER; Start 07/14/17 at 13:30 Acetaminophen/ Hydrocodone Bitart ([place] (5/325)) 1 tab Q6H PRN PO MODERATE PAIN LEVEL 4-6; Start 07/14/17 at 13:30 Acetaminophen/ Hydrocodone Bitart ([place] (5/325)) 2 tab Q6H PRN PO SEVERE PAIN LEVEL 7-10; Start 07/14/17 at 13:30 Morphine Sulfate (morphine) 2 mg Q4H PRN IV SEVERE PAIN LEVEL 7-10; Start 07/14 at 13:30 Docusate Sodium (Colace) 100 mg Q12H PRN PO CONSTIPATION; Start 07/14/17 at 13: 30 Magnesium Hydroxide (Milk Of Mag) 30 ml DAILY PRN PO CONSTIPATION; Start at 13:30 Bisacodyl (Dulcolax Supp) [address] CONSTIPATION; Start 07/14/17 at 13 :30 Pantoprazole (Protonix Tab) 40 mg DAILY@06 PO ; Start 07/15/17 at 06:00 ROLANDO SONG Jul 14, 2017 14:31
[2017-07-14 15:11] VITALS: PULSE 86
[2017-07-14 15:36] VITALS: BP 138/82; RESP 19
[2017-07-14] MEDS: LORAZEPAM 2 MG INJ IV PRN ×2 (15:56→20:12)
[2017-07-14 16:06] VITALS: PULSE 89; Ht 175.3 cm; Wt 68.5 kg
[2017-07-14] MEDS ORDERED: MULTIVITAMINS 10 ML, THIAMINE 100 MG, FOLIC ACID 1 MG in SOD CHLORIDE 0.9% 1,000 ML IVPB SCH (19:00)
--- NOTE | 2017-07-14 19:30 | RADRPT ---
PROCEDURE: MR Brain without contrast. CLINICAL INDICATION: Head trauma status post fall. EtOH. TECHNIQUE: An MRI of the brain was performed on a high-resolution MR scanner utilizing the followi ng sequences: Sagittal and axial T1 weighted, axial T2 weighted, axial FLAIR, coronal GRE, and axial diffusion weighted with ADC mapping. Images were reviewed high-resolution PACS workstation. No con trast was administered. COMPARISON: None FINDINGS: No high signal abnormalities are seen on the diffusion-weighted images to suggest the presence of ac hannah ischemia or recent infarct. There is no evidence of intracranial hemorrhage, mass effect, or mi dline shift. No extra-axial fluid collections are seen. The signal intensity is normal the brainste m and cerebellum. No hypointense signal abnormalities are seen on the GRE images to suggest the pres ence of blood degradation products. Normal flow voids are visible in the proximal intracranial vanessa babak and dural sinuses, indicating patency. There is mild mucosal thickening throughout the paranasa l sinuses. IMPRESSION: 1. No evidence of acute infarct, hemorrhage, mass effect or midline shift. RPTAT: HHO .Anabelle Perez MD, MD Date Time Electronically viewed and signed by .Anabelle Perez MD, on 07/14/2017 19:30 .O/
[2017-07-14 20:02] VITALS: PULSE 87
[2017-07-14 20:30] VITALS: BP 133/98; RESP 19
[2017-07-14] MEDS ORDERED: CHLORDIAZEPOXIDE 25 MG CAP PO SCH (21:00)
[2017-07-15] VITALS: BP 110/77; RESP 19
[2017-07-15 00:03] VITALS: PULSE 86
--- NOTE | 2017-07-15 00:57 | RADRPT ---
PROCEDURE: CT head, without contrast. CLINICAL INDICATION: Head trauma. TECHNIQUE: Noncontrast CT examination of the head, with axial, sagittal and coronal reformatted im ages. Automated dose exposure control was employed. CTDI: 45.01 and DLP: 720.23. COMPARISON: None. FINDINGS: No acute hemorrhage. Subarachnoid spaces are substantially preserved and symmetric. Ventricles ar e unremarkable. No mass effect. Beltran-white matter distinction is preserved without evident decreased attenuation t o suggest acute or recent infarct. Mild mucosal thickening in the ethmoid air cells as well as mild sinusitis in the left maxillary and left sphenoid sinus. Sinuses and osseous structures are otherwise unremarkable. IMPRESSION: 1. Mild sinusitis. 2. Otherwise, no acute process in the head. RPTAT: UU Physician Estrella Date Time Electronically viewed and signed by Physician Estrella on 07/15/2017 00:57 RS/
[2017-07-15 04:05] VITALS: PULSE 75
[2017-07-15 04:13] VITALS: BP 115/76; RESP 18
[2017-07-15] MEDS: LORAZEPAM 2 MG INJ IV PRN (05:18)
[2017-07-15] MEDS ORDERED: PANTOPRAZOLE (EC) 40 MG TAB PO SCH (06:00)
[2017-07-15 07:57] VITALS: BP 129/92; RESP 18
[2017-07-15 08:18] VITALS: PULSE 71
[2017-07-15 08:40] LABS: ALBUMIN 3.8 g/dl (3.3-4.9); ALBUMIN/GLOBULIN RATIO 1.26; BILIRUBIN,INDIRECT 0.7 mg/dl (0-1.1); BILIRUBIN,TOTAL 0.7 mg/dl (0.2-1.3); CALCIUM 8.7 mg/dl (8.4-10.2); CHOL/HDL RATIO 2.9 RATIO; CREATININE 0.8 mg/dl (0.61-1.24); MAGNESIUM 2.2 mg/dl (1.7-2.5); PHOSPHORUS 3.1 mg/dl (2.5-4.9); POTASSIUM 4.2 mmol/L (3.5-5.1); TOTAL PROTEIN 6.8 g/dl (6.1-8.1)
[2017-07-15 08:49] LABS: BASOPHIL # 0.1 10^3/ul (0.0-0.1); BASOPHILS % 1.1 % (0.0-2.0); EOSINOPHILS # 0.3 10^3/ul (0.0-0.5); EOSINOPHILS % 5.2 % (0.0-7.0); HEMATOCRIT 43.7 % (42.0-52.0); HEMOGLOBIN 15.6 g/dl (14.0-18.0); LYMPHOCYTES # 1.2 10^3/ul (0.8-2.9); MEAN CORPUSCULAR HEMOGLOBIN 33.5 pg (29.0-33.0); MEAN CORPUSCULAR HGB CONC 35.7 g/dl (32.0-37.0); MEAN PLATELET VOLUME 10.7 fl (7.4-10.4); MONOCYTE # 0.6 10^3/ul (0.3-0.9); MONOCYTES % 10.1 % (0.0-11.0); NEUTROPHIL # 3.4 10^3/ul (1.6-7.5); NEUTROPHILS % 61.2 % (39.0-77.0); PLATELET COUNT 242 10^3/UL (140-415); RED BLOOD COUNT 4.65 10^6/ul (4.70-6.10); RED CELL DISTRIBUTION WIDTH 11.8 % (11.5-14.5); WHITE BLOOD COUNT 5.5 10^3/ul (4.8-10.8)
[2017-07-15 08:57] LABS: T3 UPTAKE 39.9 % (23.5-40.5)
[2017-07-15] MEDS ORDERED: MULTIVITAMINS 10 ML, THIAMINE 100 MG, FOLIC ACID 1 MG in SOD CHLORIDE 0.9% 1,000 ML IVPB SCH (09:00)
[2017-07-15 09:10] LABS: THYROID STIMULATING HORMONE 0.737 MIU/L (0.465-4.680)
--- NOTE | 2017-07-15 12:56 | DS ---
Date/Time of Note Date/Time of Note DATE: 07/15/17 TIME: 12:52 Discharge Summary Admission/Discharge Info Admit Date/Time Jul 14, 2017 at 11:51 Discharge Date/Time Jul 15, 2017 at 09:29 Patient Condition: Guarded Hx of Present Illness This is a 27-year-old male with history of appendectomy in the past as well as alcohol abuse who came to [facility] after having abdominal pain with associated nausea. According to patient he had been drinking for 48 hours straight and that typically he drinks 12-18, 25 ounce cans of beer per day. He reported that the night prior to admission he had passed out in the evening time. He states that he woke up sitting down on his porch with a can of beer in his hand. When he went to his house he started to have increased nausea and persistent vomiting nonbilious nonbloody for reportedly 6 hours. He also reported feeling palpitations and anxiety associated with it. He subsequently went to [facility] for further evaluation. His ethanol level was negative on admission. No significant findings seen on CBC or BMP. He remained afebrile with no seen tachycardia. MRI of his brain is pending at this time. We will evaluate him for the aformentiond issues. Hospital Course Pt admitted for EtOH withdrawal. I went to follow up on patient this afternoon, walked past his room at 12pm appeared room had already been changed over. Spoke to patient's nurse, apparently patient had eloped several hours prior. I was not made aware of pt's departure nor was I provided the opportunity to discuss risk/benefits of departure with patient. Per nurse, AMA paperwork completed prior to discharge. Home Meds Discontinued Scripts Lorazepam* (Ativan*) 0.5 Mg Tablet, 0.5 MG PO BID for ANXIETY, #10 TAB Prov:JOVAN EDEN MD 07/04/17 Follow-up Plan Pt left AMA. Appears he received script for Ativan PRN withdrawal when here last week for same syndrome (etOH withdrawal) [facility] database checked. Does not appear pt ever filled previous Ativan Rx, therefore rx should still be valid if pt chooses to fill it Primary Care Provider Care Physician No Primary Pending Labs Laboratory Tests Test 07/15/17 07:05 White Blood Count 5.510^3/ul (4.8-10.8) Red Blood Count 4.6510^6/ul (4.70-6.10) Hemoglobin 15.6g/dl (14.0-18.0) Hematocrit 43.7% (42.0-52.0) Mean Corpuscular Volume 94.0fl (82.0-101.0) Mean Corpuscular Hemoglobin 33.5pg (29.0-33.0) Mean Corpuscular Hemoglobin Concent 35.7g/dl (32.0-37.0) Red Cell Distribution Width 11.8% (11.5-14.5) Platelet Count 93633^3/UL (140-415) Mean Platelet Volume 10.7fl (7.4-10.4) Neutrophils % 61.2% (39.0-77.0) Lymphocytes % 22.0% (15.0-51.0) Monocytes % 10.1% (0.0-11.0) Eosinophils % 5.2% (0.0-7.0) Basophils % 1.1% (0.0-2.0) Nucleated Red Blood Cells % 0.0/100WBC (0.0-0.0) Neutrophils # 3.410^3/ul (1.6-7.5) Lymphocytes # 1.210^3/ul (0.8-2.9) Monocytes # 0.610^3/ul (0.3-0.9) Eosinophils # 0.310^3/ul (0.0-0.5) Basophils # 0.110^3/ul (0.0-0.1) Nucleated Red Blood Cells # 0.010^3/ul (0.0-0.0) Sodium Level 137mmol/L (135-144) Potassium Level 4.2mmol/L (3.5-5.1) Chloride Level 105mmol/L (97-110) Carbon Dioxide Level 27mmol/L (21-31) Anion Gap 9 (8-16) Blood Urea Nitrogen 5mg/dl (7-20) Creatinine 0.80mg/dl (0.61-1.24) Glucose Level 84mg/dl (70-220) Hemoglobin A1c 4.8% (0-5.9) Calcium Level 8.7mg/dl (8.4-10.2) Phosphorus Level 3.1mg/dl (2.5-4.9) Magnesium Level 2.2mg/dl (1.7-2.5) Total Bilirubin 0.7mg/dl (0.2-1.3) Direct Bilirubin 0.00mg/dl (0.00-0.20) Indirect Bilirubin 0.7mg/dl (0-1.1) Aspartate Amino Transf (AST/SGOT) 32IU/L (15-46) Alanine Aminotransferase (ALT/SGPT) 35IU/L (13-69) Alkaline Phosphatase 79IU/L (42-121) Total Protein 6.8g/dl (6.1-8.1) Albumin 3.8g/dl (3.3-4.9) Globulin 3.00g/dl (1.3-3.2) Albumin/Globulin Ratio 1.26 Triglycerides Level 148mg/dl (0-149) Cholesterol Level 178mg/dl (100-200) LDL Cholesterol, Calculated 88mg/dl HDL Cholesterol 60mg/dl (30-63) Cholesterol/HDL Ratio 2.9RATIO Thyroid Stimulating Hormone (TSH) 0.737MIU/L (0.465-4.680) Free Thyroxine Index 2.47ug/ml (0.65-3.89) Thyroxine (T4) 6.2ug/dl (5.5-11.0) Triiodothyronine (T3) Uptake 39.9% (23.5-40.5) JUDY BERNAL MD Jul 15, 2017 12:56
== END 2017-07-15 09:29 | disposition left against medical advice (07) | DRG 894 ==
LOC: E/R 08:05 → MS4 11:51
PROVIDERS: ADMIT Internal Medicine; ATTEND Internal Medicine
DX: F10.239 Alcohol dependence with withdrawal, unspecified (principal); F17.210 Nicotine dependence, cigarettes, uncomplicated; R10.9 Unspecified abdominal pain; Z90.49 Acquired absence of other specified parts of digestive tract
CPT/HCPCS: 36415; 70450; 70551; 80053; 80061; 80306; 82607; 83036; 83690; 83735; 84100; 84425; 84436; 84443; 84479; 85025; 93005; 96374; 96375; 96376; J2060; J2405; J3411; J3475; J7030

== ENCOUNTER 2017-07-18 23:43 | Emergency (ER) | payer MEDICAID ==
[~2017-07-18] VITALS: Ht 182.9 cm; Wt 80.0 kg
[2017-07-18 23:45] VITALS: Ht 182.9 cm; Wt 80.0 kg
--- NOTE | 2017-07-19 00:02 | ERA ---
ER Documentation Chief Complaint Date/Time DATE: 07/19/17 TIME: 00:01 Chief Complaint c/o ALOC. (+) ETOH. HPI The patient is a 27-year-old male, presenting to the ER because of altered level consciousness. He brought himself to the ER, appeared intoxicated. He is unable to provide the history, the history is obtained from the previous medical record. He was admitted recently for alcohol intoxication on July 14, 2017 and signed out AGAINST MEDICAL ADVICE. Past medical history: Anxiety, depression Past surgical history: Appendectomy ROS All systems reviewed and are negative except as per history of present illness. Medications Home Meds Reported Medications Lorazepam* (Lorazepam*) 0.5 Mg Tablet, 0.5 MG PO BID Y for ANXIETY, TAB 07/19/17 Discontinued Scripts Lorazepam* (Ativan*) 0.5 Mg Tablet, 0.5 MG PO BID for ANXIETY, #10 TAB Prov:JOVAN EDEN MD 07/04/17 Allergies Allergies: Coded Allergies: No Known Allergies (Verified Allergy, Unknown, 07/14/17) PMhx/Soc History of Surgery: Yes (Appendectomy) Anesthesia Reaction: No Hx Neurological Disorder: No Hx Respiratory Disorders: No Hx Cardiac Disorders: No Hx Psychiatric Problems: Yes (Anxiety, depression) Hx Miscellaneous Medical Probl: Yes (Etoh abuse) Hx Alcohol Use: Yes Hx Substance Use: Yes Hx Tobacco Use: Yes Smoking Status: Smoker,current status unk Physical Exam Vitals Vital Signs Date Time Temp Pulse Resp B/P Pulse Ox O2 Delivery O2 Flow Rate FiO2 07/19/17 00:31 2 07/18/17 23:55 106 24 118/73 98 Room Air 07/18/17 23:45 98.1 116 24 166/88 98 Physical Exam Const: No acute distress.Intoxicated, airways intact Head: Atraumatic. Eyes: Normal Conjunctiva. ENT: Normal External Ears, Nose and Mouth. Neck: Full range of motion. No meningismus. Resp: Clear to auscultation bilaterally. Cardio: Regular Tachycardic Abd: Soft, non distended, normal bowel sounds, non tender. Skin: No petechiae or rashes. Back: No midline or flank tenderness. Ext: No cyanosis, or edema. Neur: Intoxicated, unable to perform, however he is moving all extremities Psych: Unable to perform due to his condition. Result Diagram: 07/19/17 0025 07/19/17 0025 Results 24 hrs Laboratory Tests Test 07/19/17 00:25 07/19/17 01:20 White Blood Count 6.910^3/ul Red Blood Count 4.9010^6/ul Hemoglobin 16.2g/dl Hematocrit 45.5% Mean Corpuscular Volume 92.9fl Mean Corpuscular Hemoglobin 33.1pg Mean Corpuscular Hemoglobin Concent 35.6g/dl Red Cell Distribution Width 11.7% Platelet Count 98001^3/UL Mean Platelet Volume 10.0fl Neutrophils % 50.9% Lymphocytes % 30.8% Monocytes % 8.8% Eosinophils % 7.8% Basophils % 1.3% Nucleated Red Blood Cells % 0.0/100WBC Neutrophils # 3.510^3/ul Lymphocytes # 2.110^3/ul Monocytes # 0.610^3/ul Eosinophils # 0.510^3/ul Basophils # 0.110^3/ul Nucleated Red Blood Cells # 0.010^3/ul Prothrombin Time 12.4Sec Prothrombin Time Ratio 1.0 INR International Normalized Ratio 0.92 Activated Partial Thromboplast Time 25.9Sec Sodium Level 141mmol/L Potassium Level 3.7mmol/L Chloride Level 102mmol/L Carbon Dioxide Level 25mmol/L Anion Gap 18 Blood Urea Nitrogen 4mg/dl Creatinine 0.68mg/dl Glucose Level 93mg/dl Calcium Level 9.4mg/dl Magnesium Level 2.0mg/dl Total Bilirubin 0.2mg/dl Direct Bilirubin 0.00mg/dl Indirect Bilirubin 0.2mg/dl Aspartate Amino Transf (AST/SGOT) 74IU/L Alanine Aminotransferase (ALT/SGPT) 46IU/L Alkaline Phosphatase 95IU/L Total Protein 8.0g/dl Albumin 4.6g/dl Globulin 3.40g/dl Albumin/Globulin Ratio 1.35 Salicylates Level < 1.0mg/dl Acetaminophen Level < 10.0ug/ml Ethyl Alcohol Level 249.0mg/dl Urine Color COLORLESS Urine Clarity CLEAR Urine pH 7.0 Urine Specific [place] 1.002 Urine Ketones NEGATIVEmg/dL Urine Nitrite NEGATIVEmg/dL Urine Bilirubin NEGATIVEmg/dL Urine Urobilinogen NEGATIVEmg/dL Urine Leukocyte Esterase NEGATIVELeu/ul Urine Microscopic RBC 0/HPF Urine Microscopic WBC 0/HPF Urine Hemoglobin NEGATIVEmg/dL Urine Glucose NEGATIVEmg/dL Urine Total Protein NEGATIVEmg/dl Urine Opiates Screen Negative Urine Barbiturates Negative Urine Amphetamines Screen Negative Urine Benzodiazepines Screen Negative Urine Cocaine Screen Negative Urine Cannabinoids Negative Current Medications Medications (Trade) Dose Ordered Sig/Angel Route PRN Reason Start Time Stop Time Status Last Admin Dose Admin Sodium Chloride (NS) 1,000 ml @ 1,000 mls/hr Q1H STAT IV 07/19/17 00:05 07/19/17 01:04 DC 07/19/17 00:30 Ondansetron HCl (Zofran Inj) 4 mg ONCE STAT IV 07/19/17 00:05 07/19/17 00:09 DC 07/19/17 00:30 Lorazepam (Ativan) 1 mg ONCE ONCE IV 07/19/17 00:30 07/19/17 00:31 DC 07/19/17 00:30 Procedures/MDM [place] [id number] Radiology Main Line: [phone] DIAGNOSTIC IMAGING REPORT Patient: SEB FLORES : 1990 Age: 27 Sex: M MR #: [id number] DOS: 07/19/17 0005 Ordering MD: SURAJ CHRIS MD Location: E/R Room/Bed: PROCEDURE: Portable chest x-ray. CLINICAL INDICATION: 27 years of age, male. Altered mental status. TECHNIQUE: Portable AP view of the chest. COMPARISON: None available. FINDINGS: Cardiomediastinal contours are normal. Lungs are clear. Negative for pleural effusion or pneumothorax. No acute bony abnormality. IMPRESSION: Negative for evidence of an acute chest process. RPTAT: HCTS Physician Hitesh Date Time Electronically viewed and signed by Physician Hitesh on 07/19/2017 00: 33 CS/ CC: SURAJ CHRIS MD [address] [place] [address] Radiology Main Line: [phone] DIAGNOSTIC IMAGING REPORT Patient: SEB FLORES : 1990 Age: 27 Sex: M MR #: [id number] DOS: 07/19/17 0005 Ordering MD: SURAJ CHRIS MD Location: E/R Room/Bed: PROCEDURE: Noncontrast CT Head. CLINICAL INDICATION: Altered mental status TECHNIQUE: Noncontrast CT of the head was obtained. The administered radiation dose was CTDI vol = 44 mGy, DLP = 720 mGy-cm. One or more of the following dose reduction techniques were used: automated exposure control, adjustment of the mA and/or kV according to patient size and/or use of iterative reconstruction technique. COMPARISON: 07/15/2017 FINDINGS: The ventricles and sulci are within normal limits. There is no acute intracranial hemorrhage or extra-axial fluid collection. There is no mass effect. No midline shift is identified. There is no loss of patel-white differentiation to suggest acute infarction. The orbits are within normal limits. Some mild mucosal thickening is scattered throughout the paranasal sinuses. No destructive osseous lesion is identified. IMPRESSION: No acute findings. RPTAT: HIKT .Ramy Lee MD, MD Date Time Electronically viewed and signed by .Ramy Lee MD, MD on 07/19/2017 01:23 .T/ CC: SURAJ CHRIS MD EKG: Read by emergency physician Rate/Rhythm: Normal Sinus Rhythm 88 beats/min QRS, ST, T-waves: No ST elevation, no T inversion. RWA, IRBBB Impression: Abnormal EKG . MEDICAL MAKING DECISION: The patient is a 27-year-old male, presenting with acute alcohol intoxication. He was treated with 1 L normal saline for clinical dehydration, Zofran 4 mg IV for nausea, Ativan 1 mg IV for acute agitation with good response. He later became awake, alert, and is stable for outpatient follow-up. The differential diagnoses considered include but are not limited to medication non-compliance, alcohol intoxication or withdrawal, drug intoxication or withdrawal, endocrine disorder, trauma, CVA, tumor, metabolic encephalopathy, septic encephalopathy. Departure Diagnosis: Primary Impression: Alcohol abuse Condition: Good Comments I discussed the findings with the patient. I advised the patient to follow-up with the primary physician in about 1-2 days, sooner if needed and return if any concern. The patient's blood pressure was elevated (>120/80) but appears stable without evidence of hypertension emergency or urgency. The patient was counseled about the risks of hypertension and urged to pursue outpatient monitoring and therapy within a week with their primary care physician. SURAJ CHRIS MD Jul 19, 2017 00:02
[2017-07-19] MEDS ORDERED: ONDANSETRON 4 MG INJ IV STA (00:05)
[2017-07-19] MEDS ORDERED: SOD CHLORIDE 0.9% 1,000 ML IV STA (00:05)
[2017-07-19] MEDS ORDERED: LORAZEPAM 2 MG INJ IV ONE (00:30)
--- NOTE | 2017-07-19 00:33 | RADRPT ---
PROCEDURE: Portable chest x-ray. CLINICAL INDICATION: 27 years of age, male. Altered mental status. TECHNIQUE: Portable AP view of the chest. COMPARISON: None available. FINDINGS: Cardiomediastinal contours are normal. Lungs are clear. Negative for pleural effusion or pneumothorax. No acute bony abnormality. IMPRESSION: Negative for evidence of an acute chest process. RPTAT: HCTS Physician Hitesh Date Time Electronically viewed and signed by Jaci Fagan Physician on 07/19/2017 00:33 CS/
[2017-07-19 00:51] LABS: BASOPHIL # 0.1 10^3/ul (0.0-0.1); BASOPHILS % 1.3 % (0.0-2.0); EOSINOPHILS # 0.5 10^3/ul (0.0-0.5); EOSINOPHILS % 7.8 % (0.0-7.0); HEMATOCRIT 45.5 % (42.0-52.0); HEMOGLOBIN 16.2 g/dl (14.0-18.0); LYMPHOCYTES # 2.1 10^3/ul (0.8-2.9); LYMPHOCYTES % 30.8 % (15.0-51.0); MEAN CORPUSCULAR HEMOGLOBIN 33.1 pg (29.0-33.0); MEAN CORPUSCULAR HGB CONC 35.6 g/dl (32.0-37.0); MEAN CORPUSCULAR VOLUME 92.9 fl (82.0-101.0); MONOCYTE # 0.6 10^3/ul (0.3-0.9); MONOCYTES % 8.8 % (0.0-11.0); NEUTROPHIL # 3.5 10^3/ul (1.6-7.5); NEUTROPHILS % 50.9 % (39.0-77.0); PLATELET COUNT 270 10^3/UL (140-415); RED CELL DISTRIBUTION WIDTH 11.7 % (11.5-14.5); WHITE BLOOD COUNT 6.9 10^3/ul (4.8-10.8)
[2017-07-19 01:21] LABS: ALANINE AMINOTRANSFERASE 46 IU/L (13-69); ALBUMIN 4.6 g/dl (3.3-4.9); ALBUMIN/GLOBULIN RATIO 1.35; ALKALINE PHOSPHATASE 95 IU/L (42-121); ANION GAP 18 (8-16); ASPARTATE AMINO TRANSFERASE 74 IU/L (15-46); BILIRUBIN,INDIRECT 0.2 mg/dl (0-1.1); BILIRUBIN,TOTAL 0.2 mg/dl (0.2-1.3); BLOOD UREA NITROGEN 4 mg/dl (7-20); CALCIUM 9.4 mg/dl (8.4-10.2); CARBON DIOXIDE 25 mmol/L (21-31); CHLORIDE 102 mmol/L (97-110); CREATININE 0.68 mg/dl (0.61-1.24); GLUCOSE 93 mg/dl (70-220); POTASSIUM 3.7 mmol/L (3.5-5.1); SODIUM 141 mmol/L (135-144)
--- NOTE | 2017-07-19 01:23 | RADRPT ---
PROCEDURE: Noncontrast CT Head. CLINICAL INDICATION: Altered mental status TECHNIQUE: Noncontrast CT of the head was obtained. The administered radiation dose was CTDI vol = 44 mGy, DLP = 720 mGy-cm. One or more of the following dose reduction techniques were used: automate d exposure control, adjustment of the mA and/or kV according to patient size and/or use of iterative reconstruction technique. COMPARISON: 07/15/2017 FINDINGS: The ventricles and sulci are within normal limits. There is no acute intracranial hemorrhage or ext ra-axial fluid collection. There is no mass effect. No midline shift is identified. There is no loss of patel-white differentiation to suggest acute infarction. The orbits are within normal limits. Some mild mucosal thickening is scattered throughout the parana jeovanny sinuses. No destructive osseous lesion is identified. IMPRESSION: No acute findings. RPTAT: HIKT .Ramy Lee MD, MD Date Time Electronically viewed and signed by .Ramy Lee MD, MD on 07/19/2017 01:23 .T/
[2017-07-19 01:37] LABS: INR 0.92; PROTIME 12.4 Sec (12.2-14.2)
[2017-07-19 01:38] LABS: PARTIAL THROMBOPLASTIN TIME 25.9 Sec (25.0-35.0)
[2017-07-19] MEDS ORDERED: LORA0.5T PO (01:45)
[2017-07-19 01:49] LABS: ACETAMINOPHEN < 10.0 ug/ml (10.0-30.0); SALICYLATE < 1.0 mg/dl (5.0-30.0)
[2017-07-19 02:02] LABS: ADD UMIC NO; UR ASCORBIC ACID NEGATIVE (NEGATIVE); UR BILIRUBIN (Dip) NEGATIVE (NEGATIVE); UR BLOOD (Dip) NEGATIVE (NEGATIVE); UR CLARITY CLEAR (CLEAR); UR COLOR COLORLESS (YELLOW); UR GLUCOSE (Dip) NEGATIVE (NEGATIVE); UR KETONES (Dip) NEGATIVE (NEGATIVE); UR LEUKOCYTE ESTERASE (Dip) NEGATIVE Leu/ul (NEGATIVE); UR NITRITE (Dip) NEGATIVE (NEGATIVE); UR RBC 0 /HPF (0-5); UR SPECIFIC GRAVITY (Dip) 1.002 (1.003-1.030); UR TOTAL PROTEIN (Dip) NEGATIVE (NEGATIVE); UR UROBILINOGEN (Dip) NEGATIVE (NEGATIVE)
[2017-07-19 02:04] LABS: BENZODIAZEPINES Negative (NEGATIVE)
[2017-07-19 02:12] LABS: CANNABINOIDS Negative (NEGATIVE); COCAINE Negative (NEGATIVE); OPIATES Negative (NEGATIVE)
[2017-07-19 02:30] LABS: BARBITURATES Negative (NEGATIVE)
[2017-07-19 05:58] VITALS: BP 93/38; PULSE 85; RESP 14; TEMP 98.6
== END 2017-07-19 06:01 | disposition home or self-care (01) ==
LOC: E/R 23:43
DX: F10.10 Alcohol abuse, uncomplicated (principal); R40.2222 Coma scale, best verbal response, incomprehensible words, at arrival to emergency department; R40.2132 Coma scale, eyes open, to sound, at arrival to emergency department; F17.210 Nicotine dependence, cigarettes, uncomplicated; R07.9 Chest pain, unspecified
CPT/HCPCS: 36415; 70450; 71010; 80053; 80306; 80307; 81003; 83735; 85025; 85610; 85730; 93005; 96374; 96375; J2060; J2405; J7030; Z7502; Z7610

== ENCOUNTER 2017-07-21 20:41 | Emergency (ER) | payer MEDICAID ==
[~2017-07-21] VITALS: Ht 170.2 cm; Wt 68.5 kg
[~2017-07-21 20:41] MED LIST changes: -LORA-441 PO; +LORA0.5T PO
[2017-07-21 20:59] VITALS: Ht 170.2 cm; Wt 68.5 kg
[2017-07-21] MEDS ORDERED: MAGNESIUM SULFATE 2 GM, MULTIVITAMINS 10 ML, THIAMINE 100 MG, FOLIC ACID 1 MG in SOD CH... IV STA (21:24)
[2017-07-21] MEDS ORDERED: ONDANSETRON 4 MG INJ IV STA (21:24)
[2017-07-21] MEDS ORDERED: ONDA4TAB14 PO (21:26)
[2017-07-21 21:50] LABS: BASOPHIL # 0.1 10^3/ul (0.0-0.1); BASOPHILS % 1.5 % (0.0-2.0); EOSINOPHILS # 0.1 10^3/ul (0.0-0.5); EOSINOPHILS % 1.5 % (0.0-7.0); HEMATOCRIT 48.8 % (42.0-52.0); HEMOGLOBIN 17.7 g/dl (14.0-18.0); LYMPHOCYTES # 1.5 10^3/ul (0.8-2.9); MEAN CORPUSCULAR HEMOGLOBIN 33.5 pg (29.0-33.0); MEAN CORPUSCULAR HGB CONC 36.3 g/dl (32.0-37.0); MEAN CORPUSCULAR VOLUME 92.2 fl (82.0-101.0); MEAN PLATELET VOLUME 9.8 fl (7.4-10.4); MONOCYTE # 0.7 10^3/ul (0.3-0.9); MONOCYTES % 8.2 % (0.0-11.0); NEUTROPHIL # 5.7 10^3/ul (1.6-7.5); NEUTROPHILS % 70.4 % (39.0-77.0); PLATELET COUNT 280 10^3/UL (140-415); RED BLOOD COUNT 5.29 10^6/ul (4.70-6.10); RED CELL DISTRIBUTION WIDTH 11.5 % (11.5-14.5)
[2017-07-21 22:05] LABS: INR 0.94; PROTIME 12.6 Sec (12.2-14.2)
[2017-07-21 22:09] LABS: ALBUMIN 5.2 g/dl (3.3-4.9); ALBUMIN/GLOBULIN RATIO 1.33; BILIRUBIN,INDIRECT 0.5 mg/dl (0-1.1); BILIRUBIN,TOTAL 0.5 mg/dl (0.2-1.3); CALCIUM 9.5 mg/dl (8.4-10.2); CREATININE 0.93 mg/dl (0.61-1.24); POTASSIUM 3.8 mmol/L (3.5-5.1); TOTAL PROTEIN 9.1 g/dl (6.1-8.1)
[2017-07-21] MEDS ORDERED: SOD CHLORIDE 0.9% 1,000 ML IV STA (22:41)
[2017-07-21] MEDS ORDERED: FAMOTIDINE 20 MG INJ IV STA (22:41)
[2017-07-21] MEDS ORDERED: METOCLOPRAMIDE 10 MG INJ IV STA (22:41)
--- NOTE | 2017-07-21 22:41 | ERD ---
ER Documentation Chief Complaint Date/Time DATE: 07/21/17 TIME: 22:38 Chief Complaint vomiting x 1 day, active vomiting in intake. states been drinking etoh HPI This is a 27-year-old male that presents to the emergency department after he had 3 episodes of nonbloody nonbilious emesis in the past 24 hours. The patient indicates he drank a significant amount of alcohol yesterday evening roughly 24 hours prior to arrival. He denies any hemoptysis no hematemesis or melanotic stools. He has had no fevers or shaking or chills. He denies any abdominal pain. He states he does not drink alcohol on a daily basis. He has no shortness of breath at rest or exertion. He denies a headache. He has no neck pain. ROS All systems reviewed and are negative except as per history of present illness. Medications Home Meds Active Scripts Ondansetron (Ondansetron Odt) 4 Mg Tab.rapdis, 4 MG PO Q6H Y for NAUSEA AND/OR VOMITING, #10 TAB Prov:GIANLUCA AMOR 07/21/17 Reported Medications Lorazepam* (Lorazepam*) 0.5 Mg Tablet, 0.5 MG PO BID Y for ANXIETY, TAB 07/19/17 Discontinued Scripts Lorazepam* (Ativan*) 0.5 Mg Tablet, 0.5 MG PO BID for ANXIETY, #10 TAB Prov:JOVAN EDEN MD 07/04/17 Allergies Allergies: Coded Allergies: No Known Allergies (Verified Allergy, Unknown, 07/14/17) PMhx/Soc History of Surgery: Yes (Appendectomy) Anesthesia Reaction: No Hx Neurological Disorder: No Hx Respiratory Disorders: No Hx Cardiac Disorders: No Hx Psychiatric Problems: Yes (Anxiety, depression) Hx Miscellaneous Medical Probl: Yes (Etoh abuse) Hx Alcohol Use: Yes (28 tall cans today) Hx Substance Use: Yes Hx Tobacco Use: Yes Smoking Status: Current every day smoker Physical Exam Vitals Vital Signs Date Time Temp Pulse Resp B/P Pulse Ox O2 Delivery O2 Flow Rate FiO2 07/21/17 20:59 99.5 142 20 170/82 98 Physical Exam Constitutional:Well-developed. Well-nourished. HEENT:Normocephalic. Atraumatic.Pupils were equal round reactive to light. Dry mucous membranes.No tonsillar exudates. Neck: No nuchal rigidity. No lymphadenopathy. No posterior cervical spine tenderness or step-offs. Respiratory: Not using accessory muscles of respiration.Lungs were clear to auscultation bilaterally. No rhonchi. No rales. No wheezing. Cardiovascular: Regular rate regular rhythm.No murmurs. No rubs were appreciated.S1, S2 normal. Distal pulses are palpable 2+ bilaterally. GI: Abdomen was soft. Nontender. Non Distended. No pulsatile abdominal masses or bruits. No rebound. No guarding. Bowel sounds were present and normal. Muscle skeletal: Full range of motion of both the upper and lower extremities bilaterally.Normal muscle tone.No assymetrical calf tenderness or swelling. Skin: No petechia, no purpura. No lesions on the palms or the soles of the feet. No maculopapular rash. NEURO: Patient was alert, awake, orientated x3.No facial droop. Gait observed and normal with no ataxia.Speech had regular rate and rhythm. No focal neurological deficits. Result Diagram: 07/21/17213407/21/172134 Results 24 hrs Laboratory Tests Test 07/21/17 21:35 White Blood Count 8.010^3/ul Red Blood Count 5.2910^6/ul Hemoglobin 17.7g/dl Hematocrit 48.8% Mean Corpuscular Volume 92.2fl Mean Corpuscular Hemoglobin 33.5pg Mean Corpuscular Hemoglobin Concent 36.3g/dl Red Cell Distribution Width 11.5% Platelet Count 35122^3/UL Mean Platelet Volume 9.8fl Neutrophils % 70.4% Lymphocytes % 18.0% Monocytes % 8.2% Eosinophils % 1.5% Basophils % 1.5% Nucleated Red Blood Cells % 0.0/100WBC Neutrophils # 5.710^3/ul Lymphocytes # 1.510^3/ul Monocytes # 0.710^3/ul Eosinophils # 0.110^3/ul Basophils # 0.110^3/ul Nucleated Red Blood Cells # 0.010^3/ul Prothrombin Time 12.6Sec Prothrombin Time Ratio 1.0 INR International Normalized Ratio 0.94 Activated Partial Thromboplast Time 25.0Sec Sodium Level 139mmol/L Potassium Level 3.8mmol/L Chloride Level 98mmol/L Carbon Dioxide Level 20mmol/L Anion Gap 25 Blood Urea Nitrogen 10mg/dl Creatinine 0.93mg/dl Glucose Level 94mg/dl Calcium Level 9.5mg/dl Total Bilirubin 0.5mg/dl Direct Bilirubin 0.00mg/dl Indirect Bilirubin 0.5mg/dl Aspartate Amino Transf (AST/SGOT) 62IU/L Alanine Aminotransferase (ALT/SGPT) 52IU/L Alkaline Phosphatase 130IU/L Total Protein 9.1g/dl Albumin 5.2g/dl Globulin 3.90g/dl Albumin/Globulin Ratio 1.33 Ethyl Alcohol Level 150.0mg/dl Current Medications Medications (Trade) Dose Ordered Sig/Angel Route PRN Reason Start Time Stop Time Status Last Admin Dose Admin Magnesium Sulfate/ Multivitamins/ Thiamine HCl/ Folic Acid/Sodium Chloride (Magnesium Sulfate/Mvi Adult/ Vitamin B1/Folic Acid/NS) 1,015.2 ml @ 500 mls/ hr Q2H2M STAT IV 07/21/17 21:24 07/21/17 23:25 07/21/17 22:17 Ondansetron HCl (Zofran Inj) 4 mg ONCE STAT IV 07/21/17 21:24 07/21/17 21:26 DC 07/21/17 22:17 Procedures/MDM Tended to the emergency department with nonbloody nonbilious emesis. Physical exam findings were suggestive of acute alcohol poisoning. The patient had IV access established by nursing staff. He received antiemetics IV Pepcid a banana bag and a liter bolus of 0.9 normal saline. He was now able to tolerate oral intake. He had no electrolyte abnormalities and his serum ethanol was 150. He had no signs of alcohol withdrawal. The patient was discharged home in fair condition. They were instructed to return to the emergency department at any time if there was any worsening of their condition. The patient stated they would follow up with their PCP in the next 24-48 hours to initiate a suitable medication regimen under the care of their PCP as well as to allow their PCP to monitor any drug reactions. The patient was discharged home with prescriptions after they gave informed consent to the new medication. They were also fully informed by myself on the adverse effects and adverse drug interactions in order to provide adequate safeguards to prevent possible adverse reactions to medications. Departure Diagnosis: Primary Impression: Alcohol poisoning Encounter type: initial encounter Injury intent: accidental or unintentional Qualified Code: T51.91XA - Accidental poisoning by alcohol, initial encounter Condition: Fair Patient Instructions: Vomiting (6Y-Adult), Ethanol (Blood) GIANLUCA AMOR Jul 21, 2017 22:41
[2017-07-22 02:35] VITALS: BP 128/75; PULSE 82; RESP 16; TEMP 98.6
== END 2017-07-22 02:39 | disposition home or self-care (01) ==
LOC: E/R 20:41
DX: T51.91XA Toxic effect of unspecified alcohol, accidental (unintentional), initial encounter (principal); F17.210 Nicotine dependence, cigarettes, uncomplicated; R10.13 Epigastric pain
CPT/HCPCS: 80053; 80306; 85025; 85610; 85730; 96374; 96375; J2405; J2765; J3411; J3475; J7030; Z7502; Z7610